=== PATIENT | male | born 1965 | race Caucasian/White ===

== ENCOUNTER 2021-05-21 07:45 | Inpatient (IN) | payer MEDICAID, SELFPAY ==
[~2021-05-21] VITALS: Ht 165.1 cm; Wt 87.1 kg
[~2021-05-21 07:45] MED LIST: ACET-8386 PO; ASPI-1822 PO; CARV6.25 PO; INSU100S22 SUBQ; POTA10TA PO; SIMV10TA93 PO; SLIDE SUBQ; [UNRECOGNIZED DRUG - CODE] PO
--- NOTE | 2021-05-21 07:45 | NUR ---
[facility] ALS TO ER BED 9
[2021-05-21 07:50] VITALS: BP 162/77
--- NOTE | 2021-05-21 08:00 | NUR ---
pt bib als run c/o chest pain. pt was at dialysis had 3 minutes left when substernal chest pressure began, chest pressure radiating to bilateral shoulders. AV shunt to left upper arm. NSR on monitor. breathing unlabored. nad. safety maintained.
[2021-05-21 09:45] LABS: BASOPHILS # (AUTO) 0.1 K/uL (0.00-0.22); BASOPHILS % (AUTO) 0.8 % (0.0-2.0); EOSINOPHILS # (AUTO) 0.1 K/uL (0-0.4); EOSINOPHILS % (AUTO) 1.7 % (0.0-4.0); HEMATOCRIT 33.5 % (36-52); HEMOGLOBIN 11.4 g/dL (12.0-18.0); LYMPHOCYTES % (AUTO) 24.5 % (20.5-51.1); MEAN CORPUSCULAR HEMOGLOBIN 34 pg (27-31); MEAN CORPUSCULAR HGB CONC 34 g/dL (33-37); MEAN CORPUSCULAR VOLUME 100.5 fL (80-94); MONOCYTES # (AUTO) 0.7 K/uL (0.8-1.0); MONOCYTES % (AUTO) 8.3 % (1.7-9.3); NEUTROPHILS # (AUTO) 5.4 K/uL (1.8-7.7); NEUTROPHILS % (AUTO) 64.7 % (42.2-75.2); PLATELET COUNT (AUTO) 199 K/uL (140-450); RED BLOOD CELL COUNT(AUTO) 3.34 MIL/uL (4.20-6.10); RED CELL DISTRIBUTION WIDTH 14.3 % (11.6-13.7); WHITE BLOOD COUNT (AUTO) 8.3 K/uL (4.8-10.8)
[2021-05-21 09:56] LABS: ALBUMIN 3.1 g/dL (3.4-5.0); ANION GAP 13.2 (8-16); CARBON DIOXIDE 27.4 mmol/L (21-32); POTASSIUM 3.6 mmol/L (3.5-5.1); TOTAL BILIRUBIN 0.4 mg/dL (0.0-1.0)
--- NOTE | 2021-05-21 10:00 | NUR ---
pt resting in [facility] no changes noted pending admission.
[2021-05-21 10:08] LABS: CREATININE 7.2 mg/dL (0.6-1.3)
--- NOTE | 2021-05-21 11:20 | NUR ---
AMBER SPECIMEN COLLECTED AND TAKEN TO LAB
[2021-05-21] MEDS ORDERED: SODIUM PHOS / POTASSIUM PHOS 1 PKT PDR PO PRN (11:30)
[2021-05-21] MEDS ORDERED: ACETAMINOPHEN 325 MG TAB PO PRN (11:30)
[2021-05-21] MEDS ORDERED: NACL 0.9% 1,000 ML IV SCH (11:30)
[2021-05-21] MEDS ORDERED: ONDANSETRON 4 MG/2 ML VIAL IM/IVP PRN (11:30)
[2021-05-21] MEDS ORDERED: MAGNESIUM OXIDE 400 MG TAB PO PRN (11:30)
[2021-05-21] MEDS ORDERED: POTASSIUM CHLORIDE 10 MEQ TABER PO PRN (11:30)
[2021-05-21] MEDS ORDERED: DOCUSATE SODIUM 100 MG GELCAP PO PRN (11:30)
[2021-05-21] MEDS ORDERED: DEXTROSE 50% 50 ML SYR IVP PRN (11:35)
[2021-05-21 13:00] LABS: MAGNESIUM 2.1 mg/dL (1.8-2.4)
--- NOTE | 2021-05-21 14:20 | NUR ---
report given to RN on tele for continuation of care, stable for tx
--- NOTE | 2021-05-21 14:30 | NUR ---
PT ARRIVED IN STABLE CONDITION FROM THE ED. PT REPORTS 8/10 THROBBING HEADACHE, WILL MEDICATE PER MD GAXIOLA. RIGHT FOREARM 20G, INTACT AND PATENT. PT HAS A LEFT UPPER ARM AV FISTULA. SKIN INTACT. PT REPORTS MAKING LITTLE URINE BUT IS CONTINENT. PT IS ON 2L NC WITH CLEAR LUNG SOUNDS. PT PLACED ON TELE MONITOR SHOWING SINUS RHYTHM. EDUCATION PROVIDED REGARDING PLAN OF CARE, CALL LIGHT WITHIN REACH. ALL SAFETY MEASURES IN PLACE. WILL CONTINUE TO MONTIOR.
[2021-05-21 14:44] VITALS: BP 121/62
[2021-05-21] MEDS: MORPHINE SULFATE 2 MG/ML SYR IVP PRN ×2 (15:21→22:00)
--- NOTE | 2021-05-21 15:21 | NUR ---
PRN PAIN MEDICATION ADMINISTERED
[2021-05-21] MEDS: BLOOD GLUCOSE MONITORING 1 DEV DEV FS SCH ×2 (16:32→21:00)
--- NOTE | 2021-05-21 16:39 | NUR ---
PATIENT HAS BEEN SCREENED AND CATEGORIZED MODERATE NUTRITION RISK. PATIENT WILL BE SEEN WITHIN 3-5 DAYS OF ADMISSION. [address]
[2021-05-21] MEDS: HYDROcodone/APAP 5/325 MG 1 TAB TAB PO PRN (18:32)
--- NOTE | 2021-05-21 18:32 | NUR ---
PRN PAIN MEDICATION ADMINISTERED PER MD ORDER, PT TOLERATED ADMINISTRATION. REPORTS ALL NEEDS HAVE BEEN MET THROUGHOUT SHIFT. PT SITTING UP IN BED EATING DINNER WITH AT BEDSIDE. WILL ENDORSE TO SALES REPRESENTATIVE METALS NURSE
--- NOTE | 2021-05-21 19:20 | NUR ---
RECEIVED REPORT FROM MORNING SHIFT. PATIENT RESTING COMFORTABLY ON BED. VS TAKEN AND RECORDED, STABLE. NO COMPLAINTS OF PAIN. WILL CONTINUE TO MONITOR AND ASSESS.
[2021-05-21 20:00] VITALS: BP 132/64
[2021-05-21] MEDS: carvediloL 6.25 MG TAB PO SCH (22:00)
--- NOTE | 2021-05-21 22:00 | NUR ---
PRN PAIN MEDICATION MORPHINE GIVEN FOR PAIN. WILL REASSESS FOR MED RESPONSE.
[2021-05-22] VITALS (7 sets, daily range): BP systolic 119–133; BP diastolic 64–74
[2021-05-22] MEDS: MORPHINE SULFATE 2 MG/ML SYR IVP PRN ×3 (03:57→22:35)
[2021-05-22] MEDS: BLOOD GLUCOSE MONITORING 1 DEV DEV FS SCH ×4 (06:41→21:58)
--- NOTE | 2021-05-22 06:44 | NUR ---
ALL DUE MEDS AND PRN MED GIVEN. PATIENT KEPT WARM AND COMFORTABLE. ALL NEEDS ATTENDED. WILL ENDORSE TO MORNING SHIFT RN.
[2021-05-22 07:19] LABS: BASOPHILS # (AUTO) 0.1 K/uL (0.00-0.22); EOSINOPHILS # (AUTO) 0.2 K/uL (0-0.4); EOSINOPHILS % (AUTO) 2.7 % (0.0-4.0); HEMOGLOBIN 11.4 g/dL (12.0-18.0); LYMPHOCYTES # (AUTO) 2.8 K/uL (2.0-11.5); LYMPHOCYTES % (AUTO) 30.7 % (20.5-51.1); MEAN CORPUSCULAR HEMOGLOBIN 34 pg (27-31); MEAN CORPUSCULAR HGB CONC 34 g/dL (33-37); MEAN CORPUSCULAR VOLUME 100.5 fL (80-94); MONOCYTES # (AUTO) 0.7 K/uL (0.8-1.0); MONOCYTES % (AUTO) 7.3 % (1.7-9.3); NEUTROPHILS # (AUTO) 5.3 K/uL (1.8-7.7); NEUTROPHILS % (AUTO) 58.3 % (42.2-75.2); PLATELET COUNT (AUTO) 206 K/uL (140-450); RED BLOOD CELL COUNT(AUTO) 3.38 MIL/uL (4.20-6.10); RED CELL DISTRIBUTION WIDTH 14.3 % (11.6-13.7)
--- NOTE | 2021-05-22 07:30 | NUR ---
RECEIVED PT AAOX4. NO SOB NOTED. NO C/O PAIN AT THIS TIME. IV TO RT HAND PATENT AND INTACT. CHEST, DIMINISHED AIR ENTRY TO THE BASES, OTHERWISE CLEAR. ABDOMEN SOFT, BOWEL SOUND PRESENT. NO EDEMA NOTED. INSTRUCTED PT TO CALL FOR ASSISTANCE, CALL LIGHT WITHIN REACH, PT VERBALIZED UNDERSTANDING.
[2021-05-22 07:46] LABS: ANION GAP 17.5 (8-16); CARBON DIOXIDE 26.9 mmol/L (21-32); POTASSIUM 5.4 mmol/L (3.5-5.1)
--- NOTE | 2021-05-22 08:00 | NUR ---
LEFTY AV FISTULA FOR DIALYSIS ACCESS, BRUITS AND HEARD. Addendum: 05/22/21 at 1659 by Anitra Nur RN *LEFT AV FISTULA
[2021-05-22 08:48] LABS: CREATININE 10.2 mg/dL (0.6-1.3)
[2021-05-22] MEDS: ATORVASTATIN 20 MG TAB PO SCH (09:07)
[2021-05-22] MEDS: minoxidiL 2.5 MG TAB PO SCH (09:09)
[2021-05-22] MEDS: PANTOPRAZOLE 40 MG TABEC PO SCH (09:09)
[2021-05-22] MEDS: ASPIRIN 81 MG TAB.CHEW PO SCH (09:10)
[2021-05-22] MEDS: carvediloL 6.25 MG TAB PO SCH ×2 (09:10→21:49)
[2021-05-22] MEDS: HYDROcodone/APAP 5/325 MG 1 TAB TAB PO PRN ×2 (09:40→18:30)
--- NOTE | 2021-05-22 10:00 | NUR ---
JUDY HD NURSE NOTIFIED WITH THE HD ORDER.
[2021-05-22] MEDS ORDERED: DEXTROSE 50% 50 ML SYR IVP SCH (10:04)
[2021-05-22] MEDS ORDERED: INSULIN REGULAR, HUMAN 100 UNIT/ML VIAL IVP SCH (10:05)
[2021-05-22] MEDS: INSULIN LISPRO SLIDING SCALE 100 UNITS/ML VIAL SUBQ PRN ×2 (12:40→22:05)
--- NOTE | 2021-05-22 17:01 | NUR ---
PT AWAKE, NO SOB NOTED. NO C/O PAIN AT THIS TIME. ENDORSED TO MISA FOR CONTINUITY OF CARE.
--- NOTE | 2021-05-22 17:10 | NUR ---
RECEIVED PATIENT REPORT FROM MARCI DUARTE FOR CONTINUITY OF CARE.
--- NOTE | 2021-05-22 17:29 | NUR ---
BLOOD GLUCOSE CHECK WAS 146. NO INSULIN COVERAGE NEEDED
--- NOTE | 2021-05-22 18:13 | NUR ---
SPOKE TO KIM. DIALYSIS WILL BE POSTPONED FOR TOMORROW.
--- NOTE | 2021-05-22 19:39 | NUR ---
ENDORSED TO HONEY LIQUEFIER NURSE FOR CONTINUITY OF CARE. PT IS STABLE
--- NOTE | 2021-05-22 19:40 | NUR ---
RECD. RESTING IN BED, AWAKE, A/OX4. RESPIRATION EVEN AND UNLABORED. WATCHING TV. WITH AV SHUNT AT THE LEFT UP0PER ARM WITH BRUIT AND THRILL. IV SALINE LOCK AT THE RIGHT FOREARM G20, PATENT AND INTACT. ABLE TO AMBULATE TO THE BR. DENIES PAIN 0/10.
--- NOTE | 2021-05-22 20:00 | NUR ---
Patient's Plan of Care was discussed and reviewed with OIL BURNER MECHANIC: MJ MCMILLAN
[2021-05-23] VITALS: BP 125/63
--- NOTE | 2021-05-23 01:41 | NUR ---
UNABLE TO SLEEP, MEDICATED WITH BENADRYL PER MD ORDER.
--- NOTE | 2021-05-23 03:00 | NUR ---
SLEEPING COMFORTABLY IN BED, RESPIRATION EVEN AND UNLABORED. CALL LIGHT IN REACH.
[2021-05-23 04:00] VITALS: BP 111/59
--- NOTE | 2021-05-23 05:00 | NUR ---
VS STABLE, STILL SINUS RHYTHM ON TELE MONITORING.
[2021-05-23] MEDS: BLOOD GLUCOSE MONITORING 1 DEV DEV FS SCH ×3 (06:28→16:30)
[2021-05-23 06:48] LABS: BASOPHILS # (AUTO) 0.1 K/uL (0.00-0.22); BASOPHILS % (AUTO) 0.7 % (0.0-2.0); EOSINOPHILS # (AUTO) 0.3 K/uL (0-0.4); EOSINOPHILS % (AUTO) 3.6 % (0.0-4.0); HEMATOCRIT 31.7 % (36-52); HEMOGLOBIN 10.8 g/dL (12.0-18.0); LYMPHOCYTES # (AUTO) 2.3 K/uL (2.0-11.5); LYMPHOCYTES % (AUTO) 27.2 % (20.5-51.1); MEAN CORPUSCULAR HEMOGLOBIN 34 pg (27-31); MEAN CORPUSCULAR HGB CONC 34 g/dL (33-37); MEAN CORPUSCULAR VOLUME 100.7 fL (80-94); MONOCYTES # (AUTO) 0.7 K/uL (0.8-1.0); MONOCYTES % (AUTO) 8.4 % (1.7-9.3); NEUTROPHILS # (AUTO) 5.2 K/uL (1.8-7.7); NEUTROPHILS % (AUTO) 60.1 % (42.2-75.2); PLATELET COUNT (AUTO) 195 K/uL (140-450); RED BLOOD CELL COUNT(AUTO) 3.15 MIL/uL (4.20-6.10); WHITE BLOOD COUNT (AUTO) 8.6 K/uL (4.8-10.8)
--- NOTE | 2021-05-23 07:00 | NUR ---
CONDITION REMAIN STABLE. ALL NEEDS ATTENDED. ABLE TO SLEEP WELL. WILL ENDORSE TO AM SHIFT NURSE OR CONTINUITY OF CARE.
[2021-05-23 07:21] LABS: ANION GAP 17.9 (8-16); CARBON DIOXIDE 26.7 mmol/L (21-32); POTASSIUM 5.6 mmol/L (3.5-5.1)
[2021-05-23 07:25] LABS: CREATININE 12.7 mg/dL (0.6-1.3)
[2021-05-23 08:00] VITALS: BP 127/65
[2021-05-23 08:41] LABS: MAGNESIUM 2.3 mg/dL (1.8-2.4); PHOSPHORUS 9.8 mg/dL (2.5-4.9)
[2021-05-23] MEDS: carvediloL 6.25 MG TAB PO SCH (09:00)
[2021-05-23] MEDS: minoxidiL 2.5 MG TAB PO SCH (09:00)
[2021-05-23] MEDS ORDERED: INSULIN REGULAR, HUMAN 100 UNIT/ML VIAL IVP SCH (09:22)
[2021-05-23] MEDS ORDERED: DEXTROSE 50% 50 ML SYR IVP SCH (09:22)
[2021-05-23] MEDS: MORPHINE SULFATE 2 MG/ML SYR IVP PRN (09:29)
[2021-05-23] MEDS: ASPIRIN 81 MG TAB.CHEW PO SCH (09:29)
[2021-05-23] MEDS: PANTOPRAZOLE 40 MG TABEC PO SCH (09:29)
[2021-05-23] MEDS: ATORVASTATIN 20 MG TAB PO SCH (09:29)
[2021-05-23] MEDS ORDERED: ATOR20TA40 PO (11:28)
--- NOTE | 2021-05-23 11:38 | NUR ---
SPOKE WITH HD NURSE JUDY, STATED SHE WILL BE HERE AT 1300 HRS, PT NOTIFIED, VERBALIZED UNDERSTANDING.
[2021-05-23 12:00] VITALS: BP 131/66
--- NOTE | 2021-05-23 13:30 | NUR ---
HEMODIALYSIS ON GOING AT THE BEDSIDE.
--- NOTE | 2021-05-23 15:40 | NUR ---
HD COMPLETED. PT TOLERATED HD WELL. 1 LITER OUT PER KIM HD NURSE.
[2021-05-23 16:00] VITALS: BP 98/58
[2021-05-23] MEDS: HYDROcodone/APAP 5/325 MG 1 TAB TAB PO PRN (16:01)
[2021-05-23 16:23] LABS: ANION GAP 15.5 (8-16); CARBON DIOXIDE 28.8 mmol/L (21-32); POTASSIUM 4.3 mmol/L (3.5-5.1)
--- NOTE | 2021-05-23 18:15 | NUR ---
DISCHARGE INSTRUCTIONS GIVEN TO PT WHICH VERBALIZED FULL UNDERSTANDING AND THE NEED TO FF UP WITH PCP IN 3 DAYS. PT MADE AWARE THAT HIS NEW SCRIPT WAS SENT TO HIS PREFERRED PHARMACY. ARM BANDS AND IV REMOVED, CANNULA TIP INTACT.
--- NOTE | 2021-05-23 18:30 | NUR ---
PT WHEELED OUT TO THE FRONT LOBBY IN STABLE CONDITION. NO SOB NOTED. NO COMPLAINTS MADE. PT IS D/C HOME WITH .
== END 2021-05-23 18:36 | disposition home or self-care (01) | DRG 198 ==
LOC: MED 07:45 → MTU 11:29
PROVIDERS: ADMIT Hospitalist; ATTEND Hospitalist
PROC: 5A1D70Z Performance of Urinary Filtration, Intermittent, Less than 6 Hours Per Day (ICD-10-PCS; principal; 2021-05-22)
DX: R07.89 Other chest pain (principal); I25.10 Atherosclerotic heart disease of native coronary artery without angina pectoris; N17.0 Acute kidney failure with tubular necrosis; I12.0 Hypertensive chronic kidney disease with stage 5 chronic kidney disease or end stage renal disease; E11.22 Type 2 diabetes mellitus with diabetic chronic kidney disease; E78.5 Hyperlipidemia, unspecified; N18.6 End stage renal disease; Z60.2 Problems related to living alone; Z20.822 Contact with and (suspected) exposure to COVID-19; Z86.73 Personal history of transient ischemic attack (TIA), and cerebral infarction without residual deficits; Z99.2 Dependence on renal dialysis; Z79.82 Long term (current) use of aspirin; Z79.4 Long term (current) use of insulin; Z79.899 Other long term (current) drug therapy; Z83.3 Family history of diabetes mellitus; Z82.49 Family history of ischemic heart disease and other diseases of the circulatory system
CPT/HCPCS: 36415; 71045; 80048; 80053; 82948; 83735; 84100; 84484; 85025; 87081; 93005; 99285; J1815; J2270; Q0092; Q0163

== ENCOUNTER 2023-06-19 02:35 | Emergency (ER) | payer MEDICAID, OTHER ==
[~2023-06-19] VITALS: Ht 162.6 cm; Wt 95.3 kg
[~2023-06-19 02:35] MED LIST changes: -ACET-8386 PO; +ATOR20TA40 PO; -SIMV10TA93 PO
[2023-06-19 03:11] VITALS: BP 126/70; PULSE 75; RESP 18; TEMP 98.3; O2SAT 95
[2023-06-19 03:15] VITALS: BP 126/70; PULSE 75; RESP 18; TEMP 98.3
[2023-06-19 03:17] VITALS: O2SAT 95
== END 2023-06-19 04:57 | disposition home or self-care (01) ==
LOC: MED 02:35
DX: E87.70 Fluid overload, unspecified (principal); R06.02 Shortness of breath; I13.10 Hypertensive heart and chronic kidney disease without heart failure, with stage 1 through stage 4 chronic kidney disease, or unspecified chronic kidney disease; E11.22 Type 2 diabetes mellitus with diabetic chronic kidney disease; N28.9 Disorder of kidney and ureter, unspecified; Z86.73 Personal history of transient ischemic attack (TIA), and cerebral infarction without residual deficits; Z79.4 Long term (current) use of insulin; Z79.899 Other long term (current) drug therapy
CPT/HCPCS: 71045; 93005; 99283; Q0092

== ENCOUNTER 2023-06-28 07:35 | Emergency (ER) | payer OTHER ==
[~2023-06-28] VITALS: Ht 162.6 cm; Wt 81.6 kg
[2023-06-28 07:35] VITALS: BP 141/79; PULSE 69; RESP 24; TEMP 97.7; O2SAT 97
[2023-06-28 08:30] LABS: BASOPHILS # (AUTO) 0.1 K/uL (0.00-0.22); BASOPHILS % (AUTO) 1.2 % (0.0-2.0); EOSINOPHILS # (AUTO) 0.3 K/uL (0-0.4); EOSINOPHILS % (AUTO) 4.3 % (0.0-4.0); HEMATOCRIT 36.2 % (36-52); HEMOGLOBIN 11.8 g/dL (12.0-18.0); LYMPHOCYTES # (AUTO) 1.2 K/uL (2.0-11.5); LYMPHOCYTES % (AUTO) 16.8 % (20.5-51.1); MEAN CORPUSCULAR HEMOGLOBIN 34 pg (27-31); MEAN CORPUSCULAR HGB CONC 33 g/dL (33-37); MEAN CORPUSCULAR VOLUME 103.8 fL (80-94); MONOCYTES # (AUTO) 0.6 K/uL (0.8-1.0); MONOCYTES % (AUTO) 8.2 % (1.7-9.3); NEUTROPHILS # (AUTO) 4.8 K/uL (1.8-7.7); NEUTROPHILS % (AUTO) 69.5 % (42.2-75.2); PLATELET COUNT (AUTO) 203 K/uL (140-450); RED BLOOD CELL COUNT(AUTO) 3.49 MIL/uL (4.20-6.10); RED CELL DISTRIBUTION WIDTH 14.5 % (11.6-13.7); WHITE BLOOD COUNT (AUTO) 6.8 K/uL (4.8-10.8)
[2023-06-28 08:49] LABS: ALBUMIN 3.8 g/dL (3.4-5.0); ANION GAP 12.4 (8-16); CARBON DIOXIDE 30.6 mmol/L (21-32); TOTAL BILIRUBIN 0.5 mg/dL (0.0-1.0)
[2023-06-28 11:23] VITALS: BP 132/73; PULSE 65; RESP 16; TEMP 36.83628; O2SAT 100
== END 2023-06-28 11:23 | disposition home or self-care (01) ==
LOC: MED 07:35
DX: R07.9 Chest pain, unspecified (principal); I13.11 Hypertensive heart and chronic kidney disease without heart failure, with stage 5 chronic kidney disease, or end stage renal disease; E11.22 Type 2 diabetes mellitus with diabetic chronic kidney disease; N18.6 End stage renal disease; Z99.2 Dependence on renal dialysis; Z79.4 Long term (current) use of insulin; Z79.899 Other long term (current) drug therapy
CPT/HCPCS: 36415; 71045; 80053; 83880; 84484; 85025; 93005; 99285